=== PATIENT | male | born 1945 | race Caucasian/White ===

== ENCOUNTER 2018-06-25 09:34 | Outpatient (CLI) | payer MEDICARE | END 2018-06-25 09:35 | disposition home or self-care (01) | LOC: DTY/OP 09:34 | PROVIDERS: ATTEND Specialist | DX: Z01.818 Encounter for other preprocedural examination (principal); E66.01 Morbid (severe) obesity due to excess calories | CPT/HCPCS: 97802 ==

== ENCOUNTER 2018-09-09 11:00 | Inpatient (IN) | payer MEDICARE ==
[2018-09-09 10:51] VITALS: BMI 38.3
[2018-09-14] MEDS ORDERED: cefOXitin 2 GM VIAL ONE (06:10)
[2018-09-14] MEDS ORDERED: Heparin 5,000 UNITS/ML VIAL ONE (06:10)
[2018-09-14] MEDS ORDERED: Ketorolac Tromethamine 30 MG/ML VIAL ONE (06:10)
[2018-09-14] MEDS ORDERED: Scopolamine 1.5 mg/72 hour Patch ONE (06:10)
[2018-09-14] MEDS ORDERED: Sodium Chloride 0.9% 100 ML ONE (06:10)
[2018-09-14] MEDS ORDERED: Midazolam HCl 2 mg/2 ml Vial ONE (06:11)
[2018-09-14] MEDS ORDERED: Lidocaine 2% Jelly 5 ML TUBE ONE (06:11)
[2018-09-14] MEDS ORDERED: Fentanyl 250 MCG/5 ML VIAL ONE (06:11)
[2018-09-14] MEDS ORDERED: Bupivacaine/Epinephrine 0.25% 30 ML VIAL ONE (06:32)
[2018-09-14] MEDS ORDERED: Hydrocodone-Acetamin 15 ML UDCUP PO PRN (07:32)
[2018-09-14] MEDS ORDERED: Ondansetron PF 4 MG/2 ML Vial IVP PRN (07:32)
[2018-09-14] MEDS ORDERED: hydrALAZINE 20 MG/ML VIAL SLOW IVP PRN (07:32)
[2018-09-14] MEDS ORDERED: Promethazine HCl 25 MG/ML VIAL IM PRN ×2 (07:32→10:22)
[2018-09-14] MEDS ORDERED: diphenhydrAMINE 50 MG/ML VIAL IVP PRN (07:32)
[2018-09-14] MEDS ORDERED: Dextrose 50% Abboject 50 ML SYRINGE SLOW IVP PRN (07:32)
[2018-09-14] MEDS ORDERED: Dextrose 5% in Water 1,000 ML IV PRN (07:32)
[2018-09-14] MEDS ORDERED: Ondansetron HCl/PF 4 MG/2 ML Vial IVP PRN (10:22)
[2018-09-14] MEDS ORDERED: Promethazine HCl 25 MG/ML VIAL SLOW IVP PRN (10:22)
--- NOTE | 2018-09-14 13:01 | EKG ---
Test Reason : PREOP Blood Pressure : / mmHG Vent. Rate : 055 BPM Atrial Rate : 055 BPM P-R Int : 224 ms QRS Dur : 094 ms QT Int : 468 ms P-R-T Axes : 013 -12 025 degrees QTc Int : 447 ms Sinus bradycardia with 1st degree A-V block Low voltage QRS Borderline ECG Confirmed by PJ RUIZ ([id number]) on 09/14/2018 1:00:31 PM Referred By: JESSENIA Confirmed By:PJ RUIZ
[2018-09-14] MEDS: D5 1/2 NS w/20 mEq KCL 1,000 ML IV SCH ×3 (13:07→21:52)
[2018-09-14] MEDS: Pantoprazole 40 MG VIAL IVP SCH (13:07)
[2018-09-14] MEDS: Ketorolac Tromethamine 30 MG/ML VIAL IVP SCH ×2 (13:08→17:37)
[2018-09-14] MEDS ORDERED: Glycopyrrolate 0.2 MG/ML 5 ML SYRINGE ONE (17:58)
[2018-09-14] MEDS ORDERED: ePHEDrine/0.9% NaCl/PF SYRINGE 50 mg/10 ml ONE (17:58)
[2018-09-14] MEDS ORDERED: PROPOFOL 200 MG/20 ML VIAL ONE (17:58)
[2018-09-14] MEDS ORDERED: Lidocaine 1% PF 5 ML VIAL ONE (17:58)
[2018-09-14] MEDS ORDERED: Ondansetron PF 4 MG/2 ML Vial ONE (17:58)
[2018-09-14] MEDS: Insulin Regular 300 UNITS/3 ML VIAL SC PRN (18:38)
[2018-09-14] MEDS ORDERED: Enoxaparin Sodium 40 MG/0.4 ML SYRINGE SC SCH (21:00)
[2018-09-15] MEDS: Insulin Regular 300 UNITS/3 ML VIAL SC PRN ×2 (00:21→05:57)
[2018-09-15] MEDS: Ketorolac Tromethamine 30 MG/ML VIAL IVP SCH ×2 (00:23→05:42)
[2018-09-15 04:20] LABS: #Lymphocytes 1.4 thou/uL (1.20-3.40); #Monocytes 0.5 thou/uL (0.11-0.59); %Basophils 0.2 % (0.0-1.0); %Eosinophils 0.5 % (0.0-10.0); %Lymphocytes 17.7 % (21.0-51.0); %Monocytes 6.8 % (0.0-10.0); %Neutrophils 74.9 % (42.0-75.0); Hemoglobin 12.6 g/dL (14.0-18.0); Mean Corpuscular HGB CONC 32.9 g/dL (32.0-36.0); Mean Corpuscular Hemoglobin 31.4 pg (27.0-31.0); Mean Corpuscular Volume 95.6 fL (78.0-98.0); Mean Platelet Volume 7.8 fL (7.4-10.4); Platelet Count 259 thou/uL (130-400); Red Blood Cell (RBC) Count 4.02 mill/uL (4.70-6.10)
[2018-09-15 04:32] LABS: Anion Gap 10 mmol/L (10-20); BUN (Urea Nitrogen) 17 mg/dL (8.4-25.7); Calc. Creatinine Clearance 138 mL/min (70-130); Calcium 8.7 mg/dL (7.8-10.44); Carbon Dioxide 25 mmol/L (23-31); Chloride 105 mmol/L (98-107); Estimated GFR-MDRD Greater than 90; Glucose 211 mg/dL (83-110); Potassium 3.8 mmol/L (3.5-5.1); Sodium 136 mmol/L (136-145)
[2018-09-15] MEDS: D5 1/2 NS w/20 mEq KCL 1,000 ML IV SCH (06:00)
[2018-09-15] MEDS: Pantoprazole 40 MG VIAL IVP SCH (09:37)
[2018-09-15 11:58] VITALS: BP 142/66; TEMP 98.7
--- NOTE | 2018-09-16 12:58 | OP ---
DATE OF PROCEDURE: 09/14/2018 PREOPERATIVE DIAGNOSES: Laparoscopic band dysfunction, morbid obesity. POSTOPERATIVE DIAGNOSES: Laparoscopic band dysfunction, morbid obesity. OPERATION PERFORMED: Removal of laparoscopic band as well as injection port, conversion to sleeve ga strectomy. SURGEON: Barber Appiah M.D. ANESTHESIA: General endotracheal. INDICATIONS: The patient is a 73-year-old white male. He had a previous lap band many years ago. T his did not suffice as a weight loss surgery for him and instead cause numerous problems. He present s at this time for laparoscopic band removal and conversion to a sleeve gastrectomy. OPERATIVE PROCEDURE IN DETAIL: Informed consent was obtained. The patient was taken to the operatin g room where general endotracheal anesthesia obtained with the patient in supine position. Abdomen w as prepped with ChloraPrep and draped in sterile fashion. Local anesthetic was infiltrated and 5 mm supraumbilical incision was created through which a Veress needle was passed into the peritoneal cavi ty and pneumoperitoneum established using carbon dioxide up to a pressure of 15 mmHg. Pneumoperitone um was established using carbon dioxide up to a pressure of 15 mmHg. A 5 mm trocar port was passed t hrough this same incision. Laparoscopic camera was passed through this port. Under direct vision, I placed 4 additional ports. These included bilateral subcostal 5 mm ports, a right paramedian 12 mm port and a left paramedian 15 mm port just inferior to the palpable edge of his lap band port. There were noted to be essentially no adhesions to the anterior abdominal wall. There were very few adhes ions between the liver and the stomach. I made another 5 mm incision through which I passed the Estela bear retractor and used this to retract the left lobe of the liver. The lap band tubing was cut and most of it removed from within the abdomen to improve visualization. Attention was turned to the area of the lap band. Using a hook electrocautery, I carefully dissecte d the scar tissue off the superficial aspect of the band. I then began to take down the wrap that wa s covering the lateral aspect of the band. This unfortunately extended significantly further lateral than typical and appeared to be sutured up to the diaphragm rather than to the stomach itself. Ther e were Ethibond sutures that were visualized and cut. At some point, I could no longer see along the lateral aspect and decided to turn my attention to mobilizing the greater curvature. Attention was turned to the distal stomach. There were adhesions to the liver and duodenum from prio r cholecystectomy. These were carefully mobilized. I was able to identify the pylorus and beginning about 5 cm from the pylorus, I took down the vascular and omental tissue using the LigaSure in an as cending fashion. I was able to completely mobilize the greater curvature including all short gastric vessels up to the hiatus. At that point, I was able to visualize the remainder of the inflammatory changes from the lap band placement. All of these were mobilized in order to restore normal gastric anatomy. I also took down a significant amount of the tract capsule around the port. At this point, the lap band was unbuckled and removed uneventfully from within the abdomen. The stomach was then dissected further on the anterior and lateral aspect in order to fully restore a natomy. The ViSiGi device was advanced under vision into the distal stomach and positioned at the pylorus. U sing this as a guide, I divided the stomach using a series of fires of the Gruver stapler, utilizing a green stapler for the first fire, a gold load subsequently and then blue loads for the remainder. Once the stomach was completely transected, attention was turned to the staple line. It was intact throughout. There were a couple of areas of minor oozing. I placed a series of clips across the sta ple line to obtain meticulous hemostasis. Then, using the ViSiGi, I fully insufflated the gastric sleeve while the staple line was under water. There is no evidence of any air leak. The ViSiGi was then completely removed. The stomach was removed from within the abdomen. The fascia was closed with a [id number] suture of 0 Vicryl using a GraNee needle. The Kyleigh retractor was removed. All ports and instruments removed under direct vision. Pneumoperitoneum was carefully evacuated. A 0.25% Marcaine with epinep hrine was infiltrated at each port site. Attention was then turned to the lap band port. The 15 mm incision in the left abdomen was extended somewhat. Dissection was carried down to the port, which was dissected free circumferentially and re moved intact. There were no additional defects that required closure. The wound was irrigated. All irrigant was aspirated. The wound was closed in layers with 3-0 and 4-0 Monocryl suture. Dermabond was placed externally over each incision. There were no complications. The patient tolerated the p rocedure well and was taken to recovery room in stable condition.
== END 2018-09-15 12:17 | disposition home or self-care (01) | DRG 621 ==
LOC: SURG A 09-14 05:33
PROVIDERS: ADMIT Specialist; ATTEND Specialist
PROC: 0DB64Z3 Excision of Stomach, Percutaneous Endoscopic Approach, Vertical (ICD-10-PCS; principal; 2018-09-14)
PROC: 0DP64CZ Removal of Extraluminal Device from Stomach, Percutaneous Endoscopic Approach (ICD-10-PCS; 2018-09-14)
DX: E66.01 Morbid (severe) obesity due to excess calories (principal); E11.9 Type 2 diabetes mellitus without complications; I10 Essential (primary) hypertension; Z68.38 Body mass index [BMI] 38.0-38.9, adult
CPT/HCPCS: 36415; 36416; 80048; 85025; 88307; 88312; 88341; 88342; 93005; 93010; 94760; C9113; J0131; J0694; J1644; J1650; J1815; J1885; J2001; J2250; J2405; J2704; J3010; J7050